=== PATIENT | male | born 1970 | race Caucasian/White ===

== ENCOUNTER 2024-01-17 07:40 | Outpatient (OUT) | payer OTHER, SELFPAY ==
--- NOTE | 2024-01-17 07:53 | ECG_ITS ---
[facility] Test Date: 2024-01-17 Pat Name: SACHA WINSTON Department: Room: - Gender: Male [employer]ist: : 1970 Requested By: RITO KIRBY Order Number: [id number] Reading MD: CECILIA JESUS Measurements Intervals Redfox Rate: 66 P: 17 NH: 207 QRS: 5 QRSD: 82 T: 15 QT: 349 QTc: 367 Interpretive Statements SINUS RHYTHM No previous ECG available for comparison Electronically Signed On 01-17-2024 22:21:11 EDT by CECILIA JESUS
--- NOTE | 2024-01-17 08:33 | PM.PRESUREVA ---
History of Present Illness History of Present Illness Chief complaint: chronic maxillary sinusitis Narrative: Patient presents for preadmission testing. The patient reports a long history of sinus infections, sinus pressure, Headaches, and congestion. The patient states he had a nasal sinus surgery in the past. He denies any recent fever, cough, sore throat, or any other complaints. Review of Systems ROS Narrative REVIEW OF SYSTEMS: Negative except as stated in HPI, ten or more systems reviewed. Constitutional: No fever , chills, weakness ENT: No sore throat or epistaxis Cardiovascular: No edema, chest pain, palpitations, or activity intolerance Respiratory: No shortness of breath, cough, or wheezing Musculoskeletal: No joint pain or swelling Gastrointestinal: No abdominal pain, constipation, diarrhea, or vomiting Genitourinary: No dysuria or hematuria Neurological: No numbness, tingling, or weakness Psychiatric: No mood changes [facility] History (Updated 01/17/24 @ 08:25 by Kaycee Wood NP) Anxiety ?F41.9 - Anxiety disorder, unspecified (ICD-10) Lumbar spondylosis ?M47.816 - Spondylosis without myelopathy or radiculopathy, lumbar region (ICD-10) COVID-19 ?U07.1 - COVID-19 (ICD-10) Sleep apnea ?G47.30 - Sleep apnea, unspecified (ICD-10) Heartburn ?R12 - Heartburn (ICD-10) Glaucoma ?H40.9 - Unspecified glaucoma (ICD-10) High cholesterol ?E78.00 - Pure hypercholesterolemia, unspecified (ICD-10) Hypertension ?I10 - Essential (primary) hypertension (ICD-10) Chronic maxillary sinusitis ?J32.0 - Chronic maxillary sinusitis (ICD-10) Surgical History (Updated 01/17/24 @ 08:25 by Kaycee Wood NP) H/O radiofrequency ablation (RFA) of nerve of lumbar spine ?Z98.890 - Other specified postprocedural states (ICD-10) History of wisdom tooth extraction ?K08.409 - Partial loss of teeth, unspecified cause, unspecified class (ICD-10) S/P LASIK (laser assisted in situ keratomileusis) ?Z98.890 - Other specified postprocedural states (ICD-10) History of nasal septoplasty ?Z98.890 - Other specified postprocedural states (ICD-10) History of vasectomy ?Z98.52 - Vasectomy status (ICD-10) History of tonsillectomy ?Z90.89 - Acquired absence of other organs (ICD-10) S/P ACL repair ?Z98.890 - Other specified postprocedural states (ICD-10) History of arthroscopy of knee ?Z98.890 - Other specified postprocedural states (ICD-10) Family History (Updated 01/17/24 @ 08:21 by Kaycee Wood NP) Other Family history of DVT Family history of hypertension Family history of prostate cancer Social History (Updated 01/17/24 @ 08:18 by Kaycee Wood NP) Within the past year, how often did you have a drink containing alcohol: 4 or more times a week Within the past year, how many standard drinks containing alcohol did you have on a typical day: 5 or 6 Smoking status: Former smoker Non-prescribed substance use: denies use Previous occupational history: Facilities Maintenance Highest level of school completed/degree received: high school graduate Meds Home Medications and Allergies Home Medications Medication Instructions Recorded Confirmed Type Lactobacillus acidophilus 10 100 mmu cells PO DAILY 01/17/24 01/17/24 History billion cell capsule (Probiotic) amitriptyline 25 mg tablet 25 mg PO DAILY 01/17/24 01/17/24 History atorvastatin 20 mg tablet 20 mg PO DAILY 01/17/24 01/17/24 History coenzyme Q10 30 mg capsule (Co 30 mg PO DAILY 01/17/24 01/17/24 History Q-10) dicyclomine 20 mg tablet 20 mg PO BID 01/17/24 01/17/24 History gabapentin 600 mg tablet 600 mg PO BID 01/17/24 01/17/24 History latanoprost 0.005 % eye drops drp ophthalmic (eye) 01/17/24 History levocetirizine 5 mg tablet (24HR 5 mg PO DAILY 01/17/24 01/17/24 History Allergy Relief) lisinopril 20 mg tablet 20 mg PO DAILY 01/17/24 01/17/24 History multivitamin (Daily Multi-Vitamin 1 tab PO DAILY 01/17/24 01/17/24 History tablet) naproxen 500 mg tablet 500 mg PO BID 01/17/24 01/17/24 History omega 6-swf-zsl-fish oil 1,000 mg 1 cap PO DAILY 01/17/24 01/17/24 History (120 mg-180 mg) capsule (Fish Oil) pantoprazole 20 mg tablet,delayed 20 mg PO DAILY 01/17/24 01/17/24 History release timolol maleate 0.5 % eye drops drp ophthalmic (eye) Q12H 01/17/24 History Allergies Allergy/AdvReac Type Severity Reaction Status Date / Time No Known Drug Allergies Allergy Verified 01/17/24 08:11 Exam Narrative Exam Narrative: Constitutional: Awake, alert, comfortable, well-appearing, nontoxic, interactive, vital signs as charted Head: Normocephalic, atraumatic Eyes: Conjunctiva and lids normal to inspection, pupils normal ENT: Tympanic membranes pearly ferrari, nonerythematous, noninjected, naris patent, posterior oropharynx clear, oral mucosa moist Neck: Supple, normal appearance, normal range of motion, no meningeal signs, no lymphadenopathy Respiratory: No respiratory distress, breath sounds clear Cardiovascular: Regular rate and rhythm, strong and regular heart tones Musculoskeletal: Normal gait, no swelling or edema Skin: No rashes or induration, no lesions, only visible skin inspected Neuro: No neurological deficits, normal sensation Psychiatric: Oriented ?3, normal affect Assessment and Plan Assessment and Plan (1) Chronic maxillary sinusitis: Plan Bilateral maxillary antrostomy scheduled with Dr. Navarro 02/08/2024.
[2024-01-17 08:46] LABS: Basophils Absolute Auto 0.1 10^3/uL (0.0-0.1); Basophils Percent Auto 1.1 % (0.2-2.0); Eosinophils Absolute Auto 0.1 10^3/uL (0.0-0.7); Eosinophils Percent Auto 1.8 % (0.9-7.0); Hematocrit 47.9 % (42.0-54.0); Hemoglobin 15.8 g/dL (14.0-18.0); Lymphocytes Absolute Auto 1.7 10^3/uL (1.2-3.8); Lymphocytes Percent Auto 31.4 % (20.5-60.0); Mean Corpuscular Hemoglobin 33.8 pg (25.9-34.0); Mean Corpuscular Volume 102.6 fL (80.0-94.0); Mean Platelet Volume 10.2 fL (9.5-13.5); Monocytes Absolute Auto 0.4 10^3/uL (0.3-0.8); Monocytes Percent Auto 6.8 % (1.7-12.0); Neutrophils Absolute Auto 3.2 10^3/uL (1.4-6.5); Neutrophils Percent Auto 58.9 % (43.0-75.0); Platelet Count 229 10^3/uL (150-450); Red Blood Count 4.67 10^6/uL (4.70-6.10); Red Cell Distribution Width 11.9 % (11.0-15.0); White Blood Count 5.5 10^3/uL (4.0-11.0)
[2024-01-17 09:21] LABS: Partial Thromboplastin Time 27.1 sec (22.3-36.2); Prothrombin Time 9.8 sec (9.0-11.6)
[2024-01-17 09:22] LABS: INR <0.93
== END 2024-01-17 07:41 | disposition home or self-care (01) ==
LOC: PST 07:43
PROVIDERS: Visit Provider Otolaryngology
DX: Z01.810 Encounter for preprocedural cardiovascular examination (principal); Z01.812 Encounter for preprocedural laboratory examination; Z01.818 Encounter for other preprocedural examination; J32.0 Chronic maxillary sinusitis
CPT/HCPCS: 85025; 85610; 85730; 93005; G0463

== ENCOUNTER 2024-02-08 08:12 | Day surgery (SDC) | payer OTHER, SELFPAY ==
[2024-01-17 08:32] VITALS: BP 122/86; PULSE 76; RESP 16; TEMP 36.3; O2SAT 97; BMI 28.0
[2024-02-08] VITALS (13 sets, daily range): BP systolic 116–141; BP diastolic 88–104; PULSE 69–87; TEMP 36.3; O2SAT 93–98; BMI 27.5
--- NOTE | 2024-02-08 | OP_ITS ---
OPERATION DATE: 02/08/2024 PRIMARY CARE PROVIDER: Jesenia Guerrero CNP SURGEON: Ramya Navarro M.D. PREOPERATIVE DIAGNOSIS: Chronic maxillary sinusitis. POSTOPERATIVE DIAGNOSIS: Chronic maxillary sinusitis. PROCEDURE: Bilateral maxillary antrostomy. ANESTHESIA: General endotracheal. COMPLICATIONS: None. FINDINGS: Grossly normal bilateral sinus anatomy. INDICATIONS: This 53-year-old man presented with chronic maxillary sinusitis unresponsive to aggressive medical management. PROCEDURE: Patient identified in the holding area and taken back to the OR, where he was placed in the supine position. After induction of general endotracheal anesthesia, the table was turned, the head elevated 20 degrees, the face was draped in a sterile fashion and Afrin soaked pledgets were placed in each side of the nose. After waiting adequate time for decongestion, the nose was copiously irrigated bilaterally. The right nose was then approached with the nasal endoscope and lidocaine 1% with 1:100,000 epinephrine injected into the middle turbinate and lateral nasal wall. The same was then done on the left. After waiting adequate time for hemostasis, the right nose was re- approached with the nasal endoscope. A curved scissor to the right was used to incise the inferior portion of the middle turbinate. The uncinate process was incised with a sickle knife and removed with an ethmoid forcep. The natural ostium of the maxillary sinus was identified and then enlarged using side biting and back biting forceps. The posterior root of the middle turbinate was prophylactically cauterized to minimize the risk of postoperative bleeding, and the nose was copiously irrigated. Attention was then turned to the left nose and the same procedure performed. The patient was then awakened and taken to the recovery room in good condition. RORY
[2024-02-08] MEDS: LACTATED RINGER'S SOLUTION 1,000 ML 50 ML IV ×2 (08:44→12:11)
[2024-02-08] MEDS: LIDOCAINE HCL 1%-EPINEPHRINE 1:100,000 20 ML MDV 8 ML INJ (12:11)
[2024-02-08] MEDS: OXYMETAZOLINE HCL 0.05% NASAL SPRAY 30 SPRAY NS (12:11)
[2024-02-08] MEDS: HYDROMORPHONE HCL 0.5 MG/0.5 ML SYRINGE IV (12:30)
[2024-02-08] MEDS: HYDROMORPHONE HCL 1 MG/ML CARTRIDGE INJ (12:41)
[2024-02-08] MEDS: ACETAMINOPHEN 300 MG/ 30 MG CODEINE TABLET 1 TAB PO (12:55)
== END 2024-02-08 13:40 | disposition home or self-care (01) ==
PROVIDERS: Visit Provider Otolaryngology
PROC: (CPT 160; principal; 2024-02-08 09:30)
DX: J32.0 Chronic maxillary sinusitis (principal); F41.9 Anxiety disorder, unspecified; M47.816 Spondylosis without myelopathy or radiculopathy, lumbar region; Z86.16 Personal history of COVID-19; G47.30 Sleep apnea, unspecified; R12 Heartburn; E78.00 Pure hypercholesterolemia, unspecified; I10 Essential (primary) hypertension; Z87.891 Personal history of nicotine dependence; Z79.899 Other long term (current) drug therapy
CPT/HCPCS: 31267; 36415; 88304; 99999; J1094; J1170; J2704